=== PATIENT | female | born 1990 | race Caucasian/White ===

== ENCOUNTER 2017-03-24 21:51 | Emergency (ER) | payer OTHER ==
[2017-03-24 22:16] VITALS: BP 139/72; PULSE 82; TEMP 98.4; BMI 26.5
--- NOTE | 2017-03-24 23:19 | PDOC ---
History of Present Illness - History of Present Illness Initial Comments: 03/24/17 23:16 27 yo F with no significant pmh who presents with trauma to left 3rd digit. 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 She was walking out of a room and threw the door on her finger. She denies hearing a popping sound or sensation. She endorses numbness/tingling of involved digit, but denies color change, swelling, or nail involvement. She also complains of inability to move digit d/t pain. Denies OTC analgesia. Denies hand or arm trauma. Pt. is right hand dominant and lass tetanus was in 2013. <Prateek Mena - Last Filed: 03/25/17 00:38> <Lois Elaine - Last Filed: 03/25/17 01:07> - General Chief Complaint: Pain Stated Complaint: INJURY TO LEFT FINGER Time Seen by Provider: 03/24/17 22:22 Past History - Past Medical History Anemia: Yes - Reproductive History (#): 4 Para: 1 Therapeutic (s) & number: Yes (1) Spontaneous : 1 - Immunization History Td Vaccination: Yes TDAP Vaccination: Yes Immunization Up to Date: Yes - Psycho/Social/Smoking Cessation Hx Anxiety: No Suicidal Ideation: No Smoking Status: No Smoking History: Never smoked Have you smoked in the past 12 months: No Number of Cigarettes Smoked Daily: 0 Information on smoking cessation initiated: No Hx Alcohol Use: No Drug/Substance Use Hx: No Substance Use Type: None <Prateek Mena - Last Filed: 03/25/17 00:38> <Lois Elaine - Last Filed: 03/25/17 01:07> - Past Medical History Allergies/Adverse Reactions: Allergies Allergy/AdvReac Type Severity Reaction Status Date / Time No Known Allergies Allergy Verified 03/24/17 22:11 Home Medications: Ambulatory Orders No Home Medications 0 dose .ROUTE UTDICT 10/31/12 Amoxicillin/Potassium Clav [Augmentin 875-125 Tablet] 1 each PO BID #14 tablet 03/25/17 Bacitracin - [Bacitracin Topical Ointment -] 1 applic TP BID #10 g 03/25/17 Review of Systems - Review of Systems Comments:: 03/24/17 23:14 GENERAL/CONSTITUTIONAL: No fever or chills. No weakness. HEAD, EYES, EARS, NOSE AND THROAT: No change in vision. No ear pain or discharge. No sore throat. CARDIOVASCULAR: No chest pain or shortness of breath RESPIRATORY: No cough, wheezing, or hemoptysis. GASTROINTESTINAL: No nausea, vomiting, diarrhea or constipation. GENITOURINARY: No dysuria, frequency, or change in urination. MUSCULOSKELETAL: + left 3rd digit pain . No neck or back pain. SKIN: No rash NEUROLOGIC: No headache, vertigo, loss of consciousness, or change in strength/ sensation. ENDOCRINE: No increased thirst. No abnormal weight change HEMATOLOGIC/LYMPHATIC: No anemia, easy bleeding, or history of blood clots. ALLERGIC/IMMUNOLOGIC: No hives or skin allergy. <Prateek Mena - Last Filed: 03/25/17 00:38> *Physical Exam - Vital Signs Last Vital Signs Temp Pulse Resp BP Pulse Ox 98.4 F 82 20 139/72 99 03/24/17 22:12 03/24/17 22:12 03/24/17 22:12 03/24/17 22:12 03/24/17 22:12 - Physical Exam Comments: 03/24/17 23:20 GENERAL: Awake, alert, and fully oriented, in no acute distress HEAD: No signs of trauma, normocephalic, atraumatic HEART: Regular rate and rhythm, normal S1 and S2, no murmurs, rubs or gallops, peripheral pulses normal and equal bilaterally. EXTREMITIES: Normal inspection, Normal range of motion, no edema. No clubbing or cyanosis. Left Hand: + 3rd digit TTP at lateral aspect at PIP joint and distal to PIP. + Ecchymosis at lateral DIP of 3rd digits. Passive range of motion and active range of motion difficult to assess d/t pain. No active signs of bleeding or laceration. Nail bed hemorrhage difficult to visualize d/t nail cosmetics. Adequate range of motion at wrist and hand. SKIN: Warm, Dry, normal turgor, no rashes or lesions noted <Prateek Mena - Last Filed: 03/25/17 00:38> - Vital Signs Last Vital Signs Temp Pulse Resp BP Pulse Ox 98.4 F 82 20 139/72 99 03/24/17 22:12 03/24/17 22:12 03/24/17 22:12 03/24/17 22:12 03/24/17 22:12 <Lois Elaine - Last Filed: 03/25/17 01:07> ED Treatment Course - RADIOLOGY Radiology Studies Ordered: Category Date Time Status HAND- LEFT [RAD] Stat Radiology 03/24/17 22:47 Taken Radiograph Interpretation: 03/25/17 00:38 EXAM#: TYPE/EXAM: RESULT: [id number] RAD/HAND- LEFT Trauma to the hand X-ray of the left hand, 3 views The alignment is satisfactory . No gross bone or soft tissue abnormality seen. No gross fracture or dislocation is identified. Impression: No gross bone or soft tissue abnormality seen. Reported By: Kamini Garcia MD 03/24/17 0183 Prateek Mena <Prateek Mena - Last Filed: 03/25/17 00:38> - LABORATORY CBC & Chemistry Diagram: 03/25/17 00:15 - ADDITIONAL ORDERS Additional order review: 03/25/17 00:15 RBC 5.05 MCV 77.9 L MCHC 32.9 RDW 14.9 D MPV 10.5 D Neutrophils % 60.3 D Lymphocytes % 30.7 D Monocytes % 6.2 Eosinophils % 2.3 D Basophils % 0.5 - Medications Given in the ED: ED Medications Discontinued Medications Generic Name Dose Route Start Last Admin Trade Name Freq PRN Reason Stop Dose Admin Diphtheria/Tetanus/Acell Pertussis 0.5 ml 03/25/17 00:05 03/25/17 00:12 Adacel Adolescent/Adult - IM 03/25/17 00:06 0.5 ml .ONCE ONE Administration Ampicillin Sodium/Sulbactam 100 mls @ 200 mls/hr 03/25/17 00:05 03/25/17 00:23 Sodium 1.5 gm/ Sodium Chloride IVPB 03/25/17 00:34 200 mls/hr ONCE ONE Administration <Lois Elaine - Last Filed: 03/25/17 01:07> Medical Decision Making - Medical Decision Making 03/25/17 00:04 27 yo F with no significant pmh who presents with trauma to left 3rd digit. 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 She was walking out of a room and threw the door on her finger. Pt. reports numbness/tingling of involved digit. Physical exam reveals absent swelling, laceration. Bruising is located on ulnar aspect of proximal PIP extending distally to DIP. Absent nail involvement. Absent evidence of neurovascular compromise. Pt. is right hand dominant. DDx: Fracture of 3rd Phalange, Dislocation of 3rd Phalange ED Course: Urine Preg: Neg CBC: Tetanus Unasyn 1.5 gm RAD LEFT HAND: EXAM#: TYPE/EXAM: RESULT: [id number] RAD/HAND- LEFT Trauma to the hand X-ray of the left hand, 3 views The alignment is satisfactory . No gross bone or soft tissue abnormality seen. No gross fracture or dislocation is identified. Impression: No gross bone or soft tissue abnormality seen. Reported By: Kamini Garcia MD 03/24/17 2343 Prateek Mena 03/25/17 00:38 03/25/17 00:38 <Prateek Mena - Last Filed: 03/25/17 00:38> *DC/Admit/Observation/Transfer - Discharge Dispostion Admit: No - Attestations Physician Attestion: 03/25/17 00:01 I, Dr. Prateek Mena, attest that this document has been prepared under my direction and personally reviewed by me in its entirety. I further attest, that it accurately reflects all work, treatment, procedures and medical decision -making performed by me. <Prateek Mena - Last Filed: 03/25/17 00:38> <Lois Elaine - Last Filed: 03/25/17 01:07> Diagnosis at time of Disposition: Injury of left middle finger Qualifiers: Encounter type: initial encounter Qualified Code(s): S69.92XA - Unspecified injury of left wrist, hand and finger(s), initial encounter - Discharge Dispostion Disposition: HOME Condition at time of disposition: Stable - Prescriptions Prescriptions: Amoxicillin/Potassium Clav [Augmentin 875-125 Tablet] 1 each PO BID #14 tablet Bacitracin - [Bacitracin Topical Ointment -] 1 applic TP BID #10 g - Referrals Referrals: Tami Waite MD [Primary Care Provider] - - Patient Instructions Printed Discharge Instructions: DI for Finger Sprain Additional Instructions: Please return to ED if you experience increased numbness, color change, increased swelling, of involved finger. Continue to take over the counter pain medication as needed. Thank you for your patience and please avoid slamming your fingers in doors. If necessary wear mittens or thick gloves when in the house to avoid future injuries. Print Language: SPANISH
[2017-03-25] MEDS ORDERED: AMPICILLIN NA/SULBACTAM NA 1.5 GM in SODIUM CHLORIDE 100 ML IVPB ONE (00:05)
[2017-03-25] MEDS ORDERED: DIPHTH,PERTUSS(ACELL),TET VAC 0.5 ML VIAL IM ONE (00:05)
--- NOTE | 2017-03-25 00:31 | PDOC ---
Attending Attestation - Resident Resident Name: RajeshPrateek - HPI HPI: 03/25/17 00:30 Slammed finger in door; no dominant left hand. - Physicial Exam PE: 03/25/17 00:30 Agree with resident exam - Medical Decision Making 03/25/17 00:30 One dose of IV abx; CBC for baseline. Tdap, and XRAY; home with abx and hand follow up.
[2017-03-25 00:44] LABS: BASOPHIL 0.5 % (0-2.0); EOSINOPHIL 2.3 % (0-4.5); MCH 25.6 pg (25.7-33.7); MCHC 32.9 g/dl (32.0-36.0); MEAN CELL VOLUME 77.9 fl (80-96); MEAN PLT VOLUME 10.5 fl (7.5-11.1); NEUTROPHILS 60.3 % (42.8-82.8); PLATELET COUNT 187 K/MM3 (134-434); RDW 14.9 % (11.6-15.6); WHITE BLOOD COUNT 12.3 K/mm3 (4.0-10.0)
== END 2017-03-25 01:08 | disposition home or self-care (01) ==
LOC: JER 21:51
PROC: 3E03329 Introduction of Other Anti-infective into Peripheral Vein, Percutaneous Approach (ICD-10-PCS; principal; 2017-03-24)
PROC: 3E0234Z Introduction of Serum, Toxoid and Vaccine into Muscle, Percutaneous Approach (ICD-10-PCS; 2017-03-24)
DX: S69.92XA Unspecified injury of left wrist, hand and finger(s), initial encounter (principal); W23.0XXA Caught, crushed, jammed, or pinched between moving objects, initial encounter; Y93.89 Activity, other specified; Y92.009 Unspecified place in unspecified non-institutional (private) residence as the place of occurrence of the external cause
CPT/HCPCS: 36415; 73130-TC-LT; 85025; 99282-25

== ENCOUNTER 2018-04-27 08:07 | Emergency (ER) | payer OTHER ==
[2018-04-27 08:14] VITALS: BMI 28.3
[2018-04-27] MEDS ORDERED: MAG HYDROX/AL HYDROX/SIMETH 30 ML UNIT-DOSE CUP PO ONE (08:47)
[2018-04-27] MEDS ORDERED: SUCRALFATE 1 GM TABLET (FP) PO ONE (08:47)
[2018-04-27] MEDS ORDERED: ACETAMINOPHEN 1000 MG/100 ML VIAL (NON FORMULARY) IVPB ONE (08:47)
[2018-04-27] MEDS ORDERED: FAMOTIDINE 20 MG/50 ML IVPB 20 MG/50 ML MG IVPB ONE ×2 (08:47→08:53)
[2018-04-27] MEDS ORDERED: ONDANSETRON 4 MG/2 ML VIAL IVPB ONE (08:47)
[2018-04-27] MEDS ORDERED: SODIUM CHLORIDE 1,000 ML IV STA (08:52)
[2018-04-27] MEDS ORDERED: SUCRALFATE 1 GM TABLET (FP) ONE (08:52)
--- NOTE | 2018-04-27 08:52 | PDOC ---
History of Present Illness - General Chief Complaint: Vomiting/Diarrhea Stated Complaint: VOMITING Time Seen by Provider: 04/27/18 08:28 History Source: Patient Exam Limitations: No Limitations - History of Present Illness Initial Comments: 04/27/18 08:48 28-year-old female patient with past medical history of polycystic ovarian syndrome presents with nausea, vomiting, diarrhea. Patient reports a positive sick contact with her daughter having a recent gastroenteritis. Has had developed nausea and multiple results of vomiting and loose watery stools. + endorese decreased appetite. Reports tactile fevers today. Reports poor intake. Denies abdominal pain but now reports some acid reflux. Did not take any medications this morning. Past History - Past Medical History Allergies/Adverse Reactions: Allergies Allergy/AdvReac Type Severity Reaction Status Date / Time No Known Allergies Allergy Verified 04/27/18 08:10 Home Medications: Ambulatory Orders Cephalexin [Keflex] 500 mg PO BID #14 capsule 04/27/18 Ondansetron HCl [Zofran] 4 mg PO Q8H PRN #15 tablet 04/27/18 Ranitidine HCl [Zantac] 150 mg PO BID PRN #14 tablet 04/27/18 Anemia: Yes COPD: No DVT: No Dementia: No Other medical history: POS - Reproductive History (#): 4 Para: 1 Therapeutic (s) & number: Yes (1) Spontaneous : 1 - Immunization History Td Vaccination: Yes TDAP Vaccination: Yes Immunization Up to Date: Yes - Suicide/Smoking/Psychosocial Hx Smoking Status: No Smoking History: Never smoked Have you smoked in the past 12 months: No Number of Cigarettes Smoked Daily: 0 Hx Alcohol Use: No Drug/Substance Use Hx: No Substance Use Type: None Review of Systems - Review of Systems Able to Perform ROS?: Yes Comments:: 04/27/18 08:49 CONSTITUTIONAL: Absent: no chills, diaphoresis, generalized weakness, malaise, Positive: +fever and loss of appetite. HEENT: Absent: rhinorrhea, nasal congestion, throat pain, throat swelling, difficulty swallowing, mouth swelling, ear pain, eye pain, visual Changes CARDIOVASCULAR: Absent: chest pain, syncope, palpitations, irregular heart rate, lightheadedness , peripheral edema RESPIRATORY: Absent: cough, shortness of breath, dyspnea with exertion, orthopnea, wheezing, stridor, hemoptysis GASTROINTESTINAL: Absent: abdominal pain, abdominal distension, constipation, melena, hematochezia Positive: nausea, vomiting, diarrhea GENITOURINARY: Absent: dysuria, frequency, urgency, hesitancy, hematuria, flank pain, genital pain MUSCULOSKELETAL: Absent: myalgia, arthralgia, joint swelling SKIN: Absent: rash, itching, pallor HEMATOLOGIC/IMMUNOLOGIC: Absent: easy bleeding, easy bruising, lymphadenopathy, frequent infections ENDOCRINE: Absent: unexplained weight gain, unexplained weight loss, heat intolerance, cold intolerance NEUROLOGIC: Absent: headache, focal weakness or paresthesias, dizziness, unsteady gait, seizure, mental status changes, bladder or bowel incontinence PSYCHIATRIC: Absent: anxiety, depression, suicidal or homicidal ideation, hallucinations. *Physical Exam - Vital Signs Last Vital Signs Temp Pulse Resp BP Pulse Ox 102.7 F H 107 H 16 113/71 100 04/27/18 08:11 04/27/18 08:11 04/27/18 08:11 04/27/18 08:11 04/27/18 08:11 - Physical Exam Comments: 04/27/18 08:51 GENERAL: Awake, alert, and fully oriented, in no acute distress. warm to touch. dry mucous membranes. HEAD: No signs of trauma EYES: EOMI, sclera anicteric, conjunctiva clear ENT: Auricles normal inspection, hearing grossly normal, nares patent NECK: Normal ROM, supple LUNGS: Breath sounds equal, clear to auscultation bilaterally. No wheezes, and no crackles HEART: Regular rate and rhythm, normal S1 and S2, no murmurs, rubs or gallops ABDOMEN: Soft, nontender, No guarding, no rebound. No masses EXTREMITIES: Normal range of motion, no edema. No clubbing or cyanosis. No cords, erythema, or tenderness NEUROLOGICAL: Cranial nerves II through XII grossly intact. Normal speech, normal gait SKIN: Warm, Dry, normal turgor, no rashes or lesions noted. ED Treatment Course - LABORATORY CBC & Chemistry Diagram: 04/27/18 08:50 04/27/18 08:50 Medical Decision Making - Medical Decision Making 04/27/18 08:51 Vital Signs Temp Pulse Resp BP Pulse Ox 102.7 F H 107 H 16 113/71 100 04/27/18 08:11 04/27/18 08:11 04/27/18 08:11 04/27/18 08:11 04/27/18 08:11 Likely viral gastroenteritis. Obtain labs, give IVF, treat symptoms and reassess. 04/27/18 10:15 CBC, BMP 04/27/18 08:50 04/27/18 08:50 CMP Sodium 139 mmol/L (136-145) 04/27/18 08:50 Potassium 4.2 mmol/L (3.5-5.1) 04/27/18 08:50 Chloride 106 mmol/L (98-107) 04/27/18 08:50 Carbon Dioxide 23 mmol/L (21-32) 04/27/18 08:50 Anion Gap 10 MMOL/L (8-16) 04/27/18 08:50 BUN 15 mg/dL (7-18) 04/27/18 08:50 Creatinine 0.8 mg/dL (0.55-1.02) 04/27/18 08:50 Creat Clearance w eGFR > 60 (>60) 04/27/18 08:50 Random Glucose 107 mg/dL (74-106) H 04/27/18 08:50 Calcium 9.2 mg/dL (8.5-10.1) 04/27/18 08:50 Magnesium 2.0 mg/dL (1.8-2.4) 04/27/18 08:50 Total Bilirubin 1.0 mg/dL (0.2-1.0) 04/27/18 08:50 AST 28 U/L (15-37) 04/27/18 08:50 ALT 29 U/L (12-78) 04/27/18 08:50 Alkaline Phosphatase 102 U/L (45-117) 04/27/18 08:50 Total Protein 8.5 g/dl (6.4-8.2) H 04/27/18 08:50 Albumin 4.4 g/dl (3.4-5.0) 04/27/18 08:50 Lipase 151 U/L (73-393) 04/27/18 08:50 Urine Test Results Urine Color Yellow 04/27/18 08:50 Urine Appearance Slcloudy 04/27/18 08:50 Urine pH 7.0 (5.0-8.0) 04/27/18 08:50 Ur Specific [place] 1.023 (1.001-1.035) 04/27/18 08:50 Urine Protein Negative (NEGATIVE) 04/27/18 08:50 Urine Glucose (UA) Negative (NEGATIVE) 04/27/18 08:50 Urine Ketones Trace (NEGATIVE) H 04/27/18 08:50 Urine Blood Negative (NEGATIVE) 04/27/18 08:50 Urine Nitrite Negative (NEGATIVE) 04/27/18 08:50 Urine Bilirubin Negative (<2.0 mg/dL) 04/27/18 08:50 Ur Leukocyte Esterase 2+ (NEGATIVE) H 04/27/18 08:50 Ur Epithelial Cells Moderate /HPF (FEW) 04/27/18 08:50 Urine Bacteria Rare /hpf (NONE SEEN) 04/27/18 08:50 Urine Mucus Few 04/27/18 08:50 Urine test negative. The patient feels better. Please noted with urinary tract infection. We'll prescribe cephalexin. Discharge diagnosis: Viral gastroenteritis, urinary tract infection. *DC/Admit/Observation/Transfer Diagnosis at time of Disposition: Gastroenteritis UTI (urinary tract infection) Qualifiers: Urinary tract infection type: site unspecified Hematuria presence: without hematuria Qualified Code(s): N39.0 - Urinary tract infection, site not specified - Discharge Dispostion Disposition: HOME Condition at time of disposition: Improved Decision to Admit order: No - Prescriptions Prescriptions: Cephalexin [Keflex] 500 mg PO BID #14 capsule Ondansetron HCl [Zofran] 4 mg PO Q8H PRN #15 tablet PRN Reason: Nausea Ranitidine HCl [Zantac] 150 mg PO BID PRN #14 tablet PRN Reason: GERD - Referrals Referrals: Tami Waite MD [Primary Care Provider] - - Patient Instructions Printed Discharge Instructions: DI for Viral Gastroenteritis -- Adult, DI for Urinary Tract Infection (UTI) Additional Instructions: Please take your medications as prescribed. Drink plenty of fluids and rest. You likely have viral gastroenteritis and an urine infection. Please take the antibiotics as prescribed. Follow up with your doctor. - Post Discharge Activity Forms/Work/School Notes: Back to Work
[2018-04-27] MEDS ORDERED: ACETAMINOPHEN INJECTION 100 ML IVPB ONE (08:53)
[2018-04-27] MEDS ORDERED: ONDANSETRON 4 MG/2 ML VIAL ONE (08:53)
[2018-04-27] MEDS ORDERED: MAG HYDROX/AL HYDROX/SIMETH 30 ML UNIT-DOSE CUP ONE (08:53)
[2018-04-27 09:12] LABS: BASO % 0.5 % (0-2.0); EOS % 0.9 % (0-4.5); HEMATOCRIT 40.9 % (32.4-45.2); HEMOGLOBIN 13.8 GM/dL (10.7-15.3); LYMPH % 3.9 % (8-40); MCH 26.3 pg (25.7-33.7); MCHC 33.7 g/dl (32.0-36.0); MEAN CELL VOLUME 78.2 fl (80-96); MEAN PLT VOLUME 10.1 fl (7.5-11.1); MONO % 3.3 % (3.8-10.2); NEUT % 91.4 % (42.8-82.8); PLATELET COUNT 117 K/MM3 (134-434); RBC 5.23 M/mm3 (3.60-5.2); WHITE BLOOD COUNT 10.3 K/mm3 (4.0-10.0)
[2018-04-27 09:27] LABS: URINE APPEARANCE SLCLOUDY; URINE BILIRUBIN NEGATIVE (<2.0 mg/dL); URINE COLOR YELLOW; URINE GLUCOSE (UA) NEGATIVE (NEGATIVE); URINE KETONE TRACE (NEGATIVE); URINE NITRITE NEGATIVE (NEGATIVE); URINE PROTEIN NEGATIVE (NEGATIVE); URINE UROBILINOGEN NEGATIVE mg/dL (0.2-1.0)
[2018-04-27 09:29] LABS: HCG,QUALITATIVE URINE Negative; URINE LEUK ESTERASE 2+ (NEGATIVE)
[2018-04-27 09:34] LABS: ALBUMIN 4.4 g/dl (3.4-5.0); ALK PHOS 102 U/L (45-117); ANION GAP 10 MMOL/L (8-16); BLOOD UREA NITROGEN 15 mg/dL (7-18); CALCIUM 9.2 mg/dL (8.5-10.1); CHLORIDE 106 mmol/L (98-107); CO2 23 mmol/L (21-32); CREATININE 0.8 mg/dL (0.55-1.02); GLUCOSE,RANDOM 107 mg/dL (74-106); LIPASE 151 U/L (73-393); POTASSIUM 4.2 mmol/L (3.5-5.1); SGOT/AST 28 U/L (15-37); SGPT/ALT 29 U/L (12-78); SODIUM 139 mmol/L (136-145); TOT PROT 8.5 g/dl (6.4-8.2)
[2018-04-27 09:37] LABS: EPI CELLS MODERATE /HPF (FEW); URINE BACTERIA RARE /hpf (NONE SEEN); URINE HYALINE CAST 1 /lpf; URINE MUCUS FEW
[2018-04-27 09:54] VITALS: TEMP 98.9
[2018-04-27 10:07] LABS: PLATELET ESTIMATE DECREASED
[2018-04-27] MEDS ORDERED: CEPHALEXIN MONOHYDRATE 500 MG CAPSULE (UD) PO ONE (10:12)
[2018-04-27 10:18] VITALS: BP 116/65; PULSE 86
[2018-04-27] MEDS ORDERED: CEPHALEXIN MONOHYDRATE 500 MG CAPSULE (UD) ONE (10:24)
== END 2018-04-27 10:26 | disposition home or self-care (01) ==
LOC: JER 08:07
PROC: 3E0337Z Introduction of Electrolytic and Water Balance Substance into Peripheral Vein, Percutaneous Approach (ICD-10-PCS; principal; 2018-04-27)
PROC: 3E033GC Introduction of Other Therapeutic Substance into Peripheral Vein, Percutaneous Approach (ICD-10-PCS; 2018-04-27)
PROC: 3E033GC Introduction of Other Therapeutic Substance into Peripheral Vein, Percutaneous Approach (ICD-10-PCS; 2018-04-27)
PROC: 3E033NZ Introduction of Analgesics, Hypnotics, Sedatives into Peripheral Vein, Percutaneous Approach (ICD-10-PCS; 2018-04-27)
DX: K52.9 Noninfective gastroenteritis and colitis, unspecified (principal)
CPT/HCPCS: 36415; 80053; 81003; 81015; 83690; 83735; 84703; 85025; 87086; 99282-25; J0131; J7030

== ENCOUNTER 2018-11-14 17:27 | Emergency (ER) | payer SELFPAY ==
--- NOTE | 2018-11-14 17:36 | PDOC ---
Rapid Medical Evaluation Time Seen by Provider: 11/14/18 17:30 Medical Evaluation: Allergies Allergy/AdvReac Type Severity Reaction Status Date / Time No Known Allergies Allergy Verified 04/27/18 08:10 11/14/18 17:30 The patient is a 28 y/o F who presents to the ED for vomiting and diarrhea. Pt also has a positive throat culture for Staph Aureus. Denies fever. Admits to weakness and not being able to keep anything down. Exam:ambulatory, NAD Orders: Nothing Pt to proceed to the ED for further evaluation Discharge Disposition - Diagnosis Throat pain - Referrals - Patient Instructions - Post Discharge Activity
[2018-11-14 17:37] VITALS: BP 119/76; PULSE 77; TEMP 97.2; BMI 29.2
[2018-11-14] MEDS ORDERED: DEXAMETHASONE SOD PHOSPHATE 10 MG/1 ML VIAL IM ONE (18:11)
--- NOTE | 2018-11-14 18:16 | PDOC ---
History of Present Illness - General Chief Complaint: Nausea/Vomiting Stated Complaint: VOMITING/DIARRHEA Time Seen by Provider: 11/14/18 17:30 History Source: Patient (n/v yesterday--resolved, sorethroat X 2 days) - History of Present Illness Associated Symptoms: reports: nausea/vomiting. denies: cough, fever/chills, headaches, loss of appetite, shortness of breath Past History - Travel Traveled outside of the country in the last 30 days: No Close contact w/someone who was outside of country & ill: No - Past Medical History Allergies/Adverse Reactions: Allergies Allergy/AdvReac Type Severity Reaction Status Date / Time No Known Allergies Allergy Verified 11/14/18 17:34 Home Medications: Ambulatory Orders Benzonatate [Tessalon Pearls -] 100 mg PO TID #21 capsule 11/14/18 Ibuprofen 800 mg PO ACDIN 7 Days #21 tablet 11/14/18 Anemia: Yes COPD: No DVT: No Dementia: No - Reproductive History (#): 4 Para: 1 Therapeutic (s) & number: Yes (1) Spontaneous : 1 - Immunization History Td Vaccination: Yes TDAP Vaccination: Yes Immunization Up to Date: Yes - Suicide/Smoking/Psychosocial Hx Smoking Status: No Smoking History: Never smoked Have you smoked in the past 12 months: No Number of Cigarettes Smoked Daily: 0 Hx Alcohol Use: No Drug/Substance Use Hx: No Substance Use Type: None Review of Systems - Review of Systems Able to Perform ROS?: No Is the patient limited Jordanian proficient: No Constitutional: No: Chills, Fever HEENTM: Yes: Throat Pain, Throat Swelling. No: Nose Congestion, Hearing Loss, Difficulty Swallowing Respiratory: Yes: Cough. No: Shortness of Breath, Wheezing, Productive cough ABD/GI: Yes: Nausea, Vomiting. 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 negative: Nasal Congestion, Rhinorrhea Neck: positive: Supple Respiratory/Chest: positive: Lungs Clear, Normal Breath Sounds Cardiovascular: positive: Regular Rhythm, Regular Rate, S1, S2 Gastrointestinal/Abdominal: positive: Normal Bowel Sounds, Flat Integumentary: positive: Normal Color Neurologic: positive: helpdesk specialist II-XII NML intact, Fully Oriented, Alert Medical Decision Making - Medical Decision Making 11/14/18 18:14 28y/o F with sorethroat and cough X 2 days, n/v 2 days ago now resolved. PT reports she had a throat cx done at her job, it was + for staph aurrue not strep , she is requesting as confirmation throat cx. 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 If positive you will be notified. Please increased fluids, take motrin or Tylenol for fever or pain Return to the Emergency Department if worsening symptoms occurs. - Post Discharge Activity Forms/Work/School Notes: Back to Work
[2018-11-14] MEDS ORDERED: DEXAMETHASONE SOD PHOSPHATE 10 MG/1 ML VIAL ONE (18:23)
== END 2018-11-14 19:05 | disposition home or self-care (01) ==
LOC: JERFT 17:27
PROC: 3E023GC Introduction of Other Therapeutic Substance into Muscle, Percutaneous Approach (ICD-10-PCS; principal; 2018-11-14)
DX: J02.9 Acute pharyngitis, unspecified (principal); J06.9 Acute upper respiratory infection, unspecified
CPT/HCPCS: 87070; 87880; 99281-25; J1100

== ENCOUNTER 2019-07-25 21:34 | Emergency (ER) | payer BC ==
[2019-07-25 21:47] VITALS: BP 128/65; TEMP 98.7; BMI 32.5
--- NOTE | 2019-07-25 22:47 | PDOC ---
History of Present Illness - General Chief Complaint: Pain Stated Complaint: /VOMITTING/PAIN Time Seen by Provider: 07/25/19 22:46 History Source: Patient Exam Limitations: No Limitations - History of Present Illness Initial Comments: Renita is a 29 yo obese F w a hx of PCOS who presents to the [facility] er with her stating she is bc she hasn't had a menstrual period since mid May and she presents here today bc she has been experiencing non-stop nausea and vomiting associated with epigastric abdominal discomfort. She states she is scared to eat food bc she keeps vomiting. She also has some discomfort in the left lower quadrant of her abdomen but denies any dysuria, frequency, urgency, or hesitancy. She states she has not yet had a US to determine if her is in the right place inside her uterus. LMP: jun 05 PCP: Tami gifford OB: Dr. Freeman" who is here at [facility] Hx: Denies smoking, drinking, or other substance usage Allergies: NKA, NKDA Past History - Past Medical History Allergies/Adverse Reactions: Allergies Allergy/AdvReac Type Severity Reaction Status Date / Time No Known Allergies Allergy Verified 11/14/18 17:34 Home Medications: Ambulatory Orders Benzonatate [Tessalon Pearls -] 100 mg PO TID #21 capsule 11/14/18 Ibuprofen 800 mg PO ACDIN 7 Days #21 tablet 11/14/18 Ondansetron [Zofran -] 4 mg PO TID #21 tablet 07/26/19 Anemia: Yes COPD: No DVT: No Dementia: No - Reproductive History (#): 4 Para: 1 Therapeutic (s) & number: Yes (1) Spontaneous : 1 - Immunization History Td Vaccination: Yes TDAP Vaccination: Yes Immunization Up to Date: Yes - Psycho Social/Smoking Cessation Hx Smoking Status: No Smoking History: Never smoked Have you smoked in the past 12 months: No Number of Cigarettes Smoked Daily: 0 Hx Alcohol Use: No Drug/Substance Use Hx: No Substance Use Type: None Review of Systems - Review of Systems Able to Perform ROS?: Yes Comments:: CONSTITUTIONAL: Absent: fever, no chills, no fatigue EYES: Absent: visual changes ENT: Absent: ear pain, no sore throat CARDIOVASCULAR: Absent: chest pain, no palpitations RESPIRATORY: Absent: cough, no SOB GI: Present: Abdominal pain, nausea, vomiting Absent: no constipation, no diarrhea GENITOURINARY: Absent: dysuria, no frequency, no hematuria MUSKULOSKELETAL: Absent: back pain, no arthralgia, no myalgia SKIN: Absent: rash NEURO: Absent: headache *Physical Exam - Vital Signs Last Vital Signs Temp Pulse Resp BP Pulse Ox 98.7 F 89 19 128/65 99 07/25/19 21:43 07/25/19 21:43 07/25/19 21:43 07/25/19 21:43 07/25/19 21:43 - Physical Exam GENERAL: Well-appearing, well-nourished. No apparent distress. HEENT: Normocephalic, atraumatic. PERRL, EOM intact. CARDIOVASCULAR: Normal S1, S2. Regular rate and rhythm. PULMONARY: No evidence of respiratory distress. Lungs clear to auscultation bilaterally. No wheezing, rales or rhonchi. ABDOMEN: Gravid uterus. Mild LLQ abd pain. Mild epigastric TTP. Overall soft, non- distended, normal bowel sounds, no rebound or guarding. EXTREMITIES: Normal ROM in all four extremities. No gross deformities. SKIN: Warm, dry. No rash NEUROLOGICAL: No focal neurological deficits. ED Treatment Course - LABORATORY CBC & Chemistry Diagram: 07/25/19 23:12 07/25/19 23:12 - RADIOLOGY Radiograph Interpretation: TVUS: FINDINGS: There is a single live intrauterine gestation measuring approximately 5 weeks and 6 days. A yolk sac is observed. heart rate is 103 bpm. There is a 1.9 cm x 1.1 cm x 1.6 cm subchorionic bleed. Normal bilateral ovaries. Medical Decision Making - Medical Decision Making Renita is a 29 yo obese F w a hx of PCOS who presents to the [facility] er with her stating she is bc she hasn't had a menstrual period since mid May and she presents here today bc she has been experiencing non-stop nausea and vomiting associated with epigastric abdominal discomfort. She states she is scared to eat food bc she keeps vomiting. She also has some discomfort in the left lower quadrant of her abdomen but denies any dysuria, frequency, urgency, or hesitancy. She states she has not yet had a US to determine if her is in the right place inside her uterus. Vital Signs Temp Pulse Resp BP Pulse Ox 98.7 F 89 19 128/65 99 07/25/19 21:43 12 21:43 07/25/19 21:43 07/25/19 21:43 07/25/19 21:43 DDx IBNLT: Hyperemesis gravidarum, GERD of , cholecystitis, electrolyte /metabolic disturbance, ectopic Plan: Labs, Urine, TVUS, anti-emetics, GI cocktail, supportive care w IV hydration, re-assess. TVUS: FINDINGS: There is a single live intrauterine gestation measuring approximately 5 weeks and 6 days. A yolk sac is observed. heart rate is 103 bpm. There is a 1.9 cm x 1.1 cm x 1.6 cm subchorionic bleed. Normal bilateral ovaries. Labs: Elevated LFT's Urine: Trace ketonuria Re-assessment: Patient seen eating and drinking at bedside after receiving GI cocktail and zofran - Zofran sent to pharmacy - Multiple OB docs given so she could follow up with regarding her subchorionic hemorrhage Dispo: Home with OB FU and Zofran Discharge - Discharge Information Problems reviewed: Yes Clinical Impression/Diagnosis: Hyperemesis arising during Condition: Improved Disposition: HOME - Admission No - Additional Discharge Information Prescriptions: Ondansetron [Zofran -] 4 mg PO TID #21 tablet - Follow up/Referral Referrals: Mariah Rizzo MD [Staff Physician] - Deepika Houston MD [Staff Physician] - Daria Sharif MD [Staff Physician] - Gulshan Dudley MD [Staff Physician] - Mani Feng MD [Staff Physician] - - Patient Discharge Instructions Patient Printed Discharge Instructions: Eating for Appropriate Weight Gain During , Common Discomforts and Bodily Changes During , A Survival Guide for Men, Weight Gain During , Managing Symptoms of , DI for Hyperemesis Gravidarum Additional Instructions: You came into the ER with nausea, vomiting, and abdominal pain. We are sending a medication to your pharmacy to take for help with nausea. Please call up one of the OB doctors we are referring you to and schedule an appointment in the next week. - Please discuss the fact that you have a subchorionic hemorrhage with your OB doc and what you can do with it. Come back to the ER immediately if you cannot eat, start vomiting, have extreme pain or any other new or worsening concerns. Thank you for coming to the [facility] ER. We hope you feel better soon! Print Language: UZBEK - Post Discharge Activity
[2019-07-25] MEDS ORDERED: FAMOTIDINE 20 MG/50 ML IVPB 20 MG/50 ML MG IVPB ONE ×2 (22:54→23:11)
[2019-07-25] MEDS ORDERED: SODIUM CHLORIDE 1,000 ML IV STA (22:54)
[2019-07-25] MEDS ORDERED: ACETAMINOPHEN 1000 MG/100 ML VIAL (NON FORMULARY) IVPB ONE (22:54)
[2019-07-25] MEDS ORDERED: ONDANSETRON 4 MG/2 ML VIAL IVPUSH ONE (22:55)
[2019-07-25] MEDS ORDERED: MAG HYDROX/AL HYDROX/SIMETH -MYLANTA- ORAL SUSPENSION PO ONE (22:56)
--- NOTE | 2019-07-25 23:04 | PDOC ---
Attending Attestation - Resident Resident Name: Wally Blanco - ED Attending Attestation I have performed the following: I have examined & evaluated the patient, The case was reviewed & discussed with the resident, I agree w/resident's findings & plan, Exceptions are as noted - HPI HPI: 07/26/19 03:23 See resident HPI - Physicial Exam PE: 07/26/19 03:23 Agree with exam as documented by resident - Medical Decision Making 07/26/19 03:23 29F pmh PCOS here with severe nausea/vomiting, nbnb in context of missed period since May, denies vaginal bleeding/discharge Consider hyperemesis 2/2 IUP, less likely ectopic slightly elevated LFT, normal platelets, normal BP TVUS with IUP, subchor hemorrage Tolerating PO in ED Rx anti-emetic to pharmacy of choice f/u transportation escort, initiate pre-shanti care and routine follow up of
[2019-07-25] MEDS ORDERED: MAG HYDROX/AL HYDROX/SIMETH 30 ML UNIT-DOSE CUP ONE (23:10)
[2019-07-25] MEDS ORDERED: ACETAMINOPHEN INJECTION 100 ML IVPB ONE (23:10)
[2019-07-25] MEDS ORDERED: ONDANSETRON 4 MG/2 ML VIAL ONE (23:11)
[2019-07-25 23:27] LABS: BASO % 0.5 % (0-2.0); EOS % 2.1 % (0-4.5); HEMATOCRIT 40.7 % (32.4-45.2); HEMOGLOBIN 13.6 GM/dL (10.7-15.3); LYMPH % 20.6 % (8-40); MCH 27.2 pg (25.7-33.7); MCHC 33.5 g/dl (32.0-36.0); MEAN CELL VOLUME 81.1 fl (80-96); MONO % 6.4 % (3.8-10.2); NEUT % 70.4 % (42.8-82.8); PLATELET COUNT 179 K/MM3 (134-434); RBC 5.02 M/mm3 (3.60-5.2); RDW 14.4 % (11.6-15.6); WHITE BLOOD COUNT 11.4 K/mm3 (4.0-10.0)
[2019-07-25 23:28] LABS: PH,URINE 5.5 (5.0-8.0); URINE APPEARANCE CLOUDY; URINE BILIRUBIN NEGATIVE (NEGATIVE); URINE COLOR YELLOW; URINE GLUCOSE (UA) NEGATIVE (NEGATIVE); URINE KETONE TRACE (NEGATIVE); URINE LEUK ESTERASE NEGATIVE (NEGATIVE); URINE NITRITE NEGATIVE (NEGATIVE); URINE PROTEIN NEGATIVE (NEGATIVE)
[2019-07-26 00:08] LABS: ALBUMIN 3.9 g/dl (3.4-5.0); BILIRUBIN,TOTAL 0.3 mg/dL (0.2-1); BLOOD UREA NITROGEN 7.6 mg/dL (7-18); CALCIUM 9.5 mg/dL (8.5-10.1); CREATININE 0.7 mg/dL (0.55-1.3); POTASSIUM 4.3 mmol/L (3.5-5.1); TOT PROT 7.6 g/dl (6.4-8.2)
[2019-07-26 02:34] VITALS: PULSE 78
== END 2019-07-26 02:38 | disposition home or self-care (01) ==
LOC: JER 21:34
PROC: 3E033NZ Introduction of Analgesics, Hypnotics, Sedatives into Peripheral Vein, Percutaneous Approach (ICD-10-PCS; principal; 2019-07-25)
PROC: 3E033GC Introduction of Other Therapeutic Substance into Peripheral Vein, Percutaneous Approach (ICD-10-PCS; 2019-07-25)
DX: O26.899 Other specified pregnancy related conditions, unspecified trimester (principal); R11.2 Nausea with vomiting, unspecified
CPT/HCPCS: 36415; 76817-TC; 80053; 81003; 83690; 84702; 85025; 86850; 86900; 86901; 87086; 87186; 99283-25; J0131; J7030

== ENCOUNTER 2019-08-30 14:20 | Emergency (ER) | payer BC ==
[2019-08-30 14:25] VITALS: BP 124/67; PULSE 84; TEMP 98; BMI 30.9
[2019-08-30] MEDS ORDERED: SODIUM CHLORIDE 1,000 ML IV STA (15:14)
[2019-08-30] MEDS ORDERED: ONDANSETRON 4 MG/2 ML VIAL IVPB ONE (15:15)
[2019-08-30] MEDS ORDERED: FAMOTIDINE 20 MG/50 ML IVPB 20 MG in PREMIX 50 IVPB ONE (15:15)
[2019-08-30] MEDS ORDERED: ONDANSETRON 4 MG/2 ML VIAL ONE (15:25)
[2019-08-30] MEDS ORDERED: FAMOTIDINE 20 MG/50 ML IVPB 20 MG/50 ML MG IVPB ONE (15:25)
[2019-08-30 15:38] LABS: BASO % 0.4 % (0-2.0); EOS % 1.9 % (0-4.5); HEMATOCRIT 40.7 % (32.4-45.2); HEMOGLOBIN 13.8 GM/dL (10.7-15.3); LYMPH % 20.2 % (8-40); MCH 27.3 pg (25.7-33.7); MCHC 33.8 g/dl (32.0-36.0); MEAN CELL VOLUME 80.9 fl (80-96); MEAN PLT VOLUME 9.7 fl (7.5-11.1); MONO % 4.7 % (3.8-10.2); NEUT % 72.8 % (42.8-82.8); PLATELET COUNT 173 K/MM3 (134-434); RBC 5.04 M/mm3 (3.60-5.2); RDW 14.5 % (11.6-15.6); WHITE BLOOD COUNT 9.6 K/mm3 (4.0-10.0)
--- NOTE | 2019-08-30 15:49 | PDOC ---
History of Present Illness - General Chief Complaint: Nausea/Vomiting Stated Complaint: 11WK IN/VOMITING Time Seen by Provider: 08/30/19 15:00 History Source: Patient Exam Limitations: No Limitations - History of Present Illness Initial Comments: 08/30/19 15:45 CHIEF COMPLAINT: Vomiting HISTORY OF PRESENT ILLNESS: This is an otherwise healthy G3, P2, 11 weeks and currently being treated with Reglan/Pepcid for hyperemesis gravidarum, which she has had with all of her pregnancies. She reports that this medication regimen worked for about 2 days, however she has again began to vomit. She is unable to keep down food or fluids. She also reports that her limbs have been "falling asleep" throughout the day. She has some upper abdominal pain, which she reports began only after multiple episodes of vomiting. She denies fever/chills, dysuria, vaginal bleeding, or any other symptoms. Vital signs on arrival are unremarkable. NUT PACKER: Dr. Rothman REVIEW OF SYSTEMS: GENERAL/CONSTITUTIONAL: No fever or chills. No weakness. No weight change. HEAD, EYES, EARS, NOSE AND THROAT: No change in vision. No ear pain or discharge. No sore throat. CARDIOVASCULAR: No chest pain or palpitations. RESPIRATORY: No cough, wheezing, or shortness of breath. GASTROINTESTINAL: See HPI. GENITOURINARY: No dysuria, frequency, or change in urination. MUSCULOSKELETAL: No joint or muscle swelling or pain. No neck or back pain. SKIN: No rash or easy bruising. NEUROLOGIC: No headache, vertigo, loss of consciousness, or loss of sensation. PSYCHIATRIC: No depression or anxiety. ENDOCRINE: No increased thirst. No abnormal weight change. HEMATOLOGIC/LYMPHATIC: No anemia, easy bleeding, or history of blood clots. ALLERGIC/IMMUNOLOGIC: No hives or skin allergy. No latex allergy. PHYSICAL EXAM: GENERAL: The patient is awake, alert, and fully oriented, in no acute distress. HEAD: Normal with no signs of trauma. ENT: Pupils equal, round and reactive to light, extraocular movements intact, sclera anicteric, conjunctiva clear. Neck supple. LUNGS: Clear to auscultation bilaterally. Normal excursion. No respiratory distress or use of accessory muscles. CV: RRR, S1/S2, no MRG. Cap refill < 2 sec. ABDOMEN: Soft, non-distended, gravid uterus palpable below umbilicus. EXTREMITIES: Normal range of motion, no edema. NEUROLOGICAL: Normal speech, normal gait. CN II-XII grossly intact. PSYCH: Normal mood, normal affect. SKIN: Warm, dry, normal turgor, no rashes or lesions noted. Past History - Past Medical History Allergies/Adverse Reactions: Allergies Allergy/AdvReac Type Severity Reaction Status Date / Time No Known Allergies Allergy Verified 08/30/19 14:25 Home Medications: Ambulatory Orders Benzonatate [Tessalon Pearls -] 100 mg PO TID #21 capsule 11/14/18 Ibuprofen 800 mg PO ACDIN 7 Days #21 tablet 11/14/18 Ondansetron [Zofran -] 4 mg PO TID #21 tablet 07/26/19 Penicillin V Potassium [Pen Vee K -] 500 mg PO BID #14 tablet 07/29/19 Doxylamine Succinate/Vit B6 [Diclegis Dr 10-10 mg Tablet] 1 each PO HS #30 tablet. 08/30/19 Promethazine HCl [Phenergan Suppository -] 12.5 mg RC HS PRN #7 supp.rect Anemia: Yes COPD: No DVT: No Dementia: No - Reproductive History (#): 4 Para: 1 Therapeutic (s) & number: Yes (1) Spontaneous : 1 - Immunization History Td Vaccination: Yes TDAP Vaccination: Yes Immunization Up to Date: Yes - Psycho Social/Smoking Cessation Hx Smoking Status: No Smoking History: Never smoked Have you smoked in the past 12 months: No Number of Cigarettes Smoked Daily: 0 Hx Alcohol Use: No Drug/Substance Use Hx: No Substance Use Type: None *Physical Exam - Vital Signs Last Vital Signs Temp Pulse Resp BP Pulse Ox 98 F 84 18 124/67 99 08/30/19 14:22 08/30/19 14:22 08/30/19 14:22 08/30/19 14:22 08/30/19 14:22 ED Treatment Course - LABORATORY CBC & Chemistry Diagram: 08/30/19 15:21 08/30/19 15:21 - ADDITIONAL ORDERS Additional order review: 08/30/19 15:21 RBC 5.04 MCV 80.9 MCHC 33.8 RDW 14.5 MPV 9.7 Neutrophils % 72.8 Lymphocytes % 20.2 Monocytes % 4.7 Eosinophils % 1.9 Basophils % 0.4 - Medications Given in the ED: ED Medications Discontinued Medications Generic Name Dose Route Start Last Admin Trade Name Long PRN Reason Stop Dose Admin Famotidine/Sodium Chloride 20 50 mls @ 100 mls/hr 08/30/19 15:15 08/30/19 15: 37 mg/ Miscellaneous IVPB 08/30/19 15:44 100 mls/hr ONCE ONE Administration Ondansetron HCl 8 mg 08/30/19 15:15 08/30/19 15:37 Zofran Injection IVPB 08/30/19 15:16 8 mg ONCE ONE Administration Medical Decision Making - Medical Decision Making 08/30/19 15:47 A/P: 29-year-old female with hyperemesis. -Zofran for nausea, Pepcid for epigastric pain -IV hydration -Check electrolytes given intermittent numbness/tingling in extremities -Dr. Rothman paged 08/30/19 16:36 Labs reviewed and are unremarkable. Patient feeling much better and tolerating PO. Will rx Diclegis, phenergan suppositories prn for severe nausea. Followup instructions and return precautions reviewed. Discharge - Discharge Information Problems reviewed: Yes Clinical Impression/Diagnosis: Hyperemesis gravidarum Condition: Improved Disposition: HOME - Admission No - Additional Discharge Information Prescriptions: Doxylamine Succinate/Vit B6 [Diclegis Dr 10-10 mg Tablet] 1 each PO HS #30 tablet. Promethazine HCl [Phenergan Suppository -] 12.5 mg RC HS PRN #7 supp.rect PRN Reason: Nausea - Follow up/Referral Referrals: Ulices Rothman MD [Primary Care Provider] - Call tomorrow - Patient Discharge Instructions Patient Printed Discharge Instructions: DI for Hyperemesis Gravidarum Additional Instructions: -Rest and drink plenty of fluids -Take Diclegis nightly as prescribed and use phenergan suppositories as needed for severe nausea -Follow up with Dr. Rothman next week -Return if you are unable to keep down fluids or for any other concerning symptoms - Post Discharge Activity Work/Back to School Note: Back to Work
[2019-08-30 16:05] LABS: ALBUMIN 3.5 g/dl (3.4-5.0); BILIRUBIN,TOTAL 0.4 mg/dL (0.2-1); BLOOD UREA NITROGEN 7.1 mg/dL (7-18); CALCIUM 9.1 mg/dL (8.5-10.1); CREATININE 0.6 mg/dL (0.55-1.3); POTASSIUM 4.1 mmol/L (3.5-5.1); TOT PROT 7.3 g/dl (6.4-8.2)
== END 2019-08-30 17:09 | disposition home or self-care (01) ==
LOC: JER 14:20
PROC: 3E033GC Introduction of Other Therapeutic Substance into Peripheral Vein, Percutaneous Approach (ICD-10-PCS; principal; 2019-08-30)
PROC: 3E033GC Introduction of Other Therapeutic Substance into Peripheral Vein, Percutaneous Approach (ICD-10-PCS; 2019-08-30)
DX: O26.891 Other specified pregnancy related conditions, first trimester (principal); O21.0 Mild hyperemesis gravidarum; Z3A.11 11 weeks gestation of pregnancy
CPT/HCPCS: 36415; 80053; 83735; 85025; 99282-25; J7030